=== PATIENT | male | born 1990 | race Caucasian/White ===

== ENCOUNTER 2018-12-17 11:36 | Emergency (ER) | payer MEDICAID ==
[~2018-12-17] VITALS: Ht 180.3 cm; Wt 88.6 kg
[2018-12-17 11:36] VITALS: BP 150/67
[~2018-12-17 11:36] MED LIST: HYDR-4383 PO
[2018-12-17] MEDS ORDERED: CEPH250T PO (12:25)
[2018-12-17] MEDS ORDERED: TETanus/Pertussis (Acell)/Diphther VAC/PF (Tdap-Adult) 0.5ml syringe IM ONE (12:25)
[2018-12-17] MEDS ORDERED: SULF1TAB49 PO (12:25)
== END 2018-12-17 12:52 | disposition home or self-care (01) ==
LOC: ER 11:36
DX: S60.459A Superficial foreign body of unspecified finger, initial encounter (principal); L08.9 Local infection of the skin and subcutaneous tissue, unspecified; Z79.899 Other long term (current) drug therapy; W45.8XXA Other foreign body or object entering through skin, initial encounter; Y93.89 Activity, other specified; Y92.89 Other specified places as the place of occurrence of the external cause; Y99.8 Other external cause status
CPT/HCPCS: 90471; 99284

== ENCOUNTER 2023-09-05 10:55 | Emergency (ER) | payer MEDICAID ==
[~2023-09-05] VITALS: Ht 180.3 cm; Wt 100.0 kg
[2023-09-05 10:57] VITALS: TEMP 98
[2023-09-05] MEDS: LIDOcaine 1% 30ml preserv. free vial SQ STA (13:02)
[2023-09-05] MEDS ORDERED: diph,pertuss (acell), tet (DTaP-PEDs)/PF (PEDIATRIC) 0.5ml syringe IMVAC ONE (13:35)
[2023-09-05] MEDS: TETanus/Pertussis (Acell)/Diphther VAC/PF (Tdap-Adult) 0.5ml syringe IMVAC ONE (14:23)
[2023-09-05 14:51] VITALS: BP 120/88; PULSE 76; RESP 16; O2SAT 97
== END 2023-09-05 14:55 | disposition home or self-care (01) ==
LOC: ER 10:55
DX: S81.812A Laceration without foreign body, left lower leg, initial encounter (principal); Z79.899 Other long term (current) drug therapy; X58.XXXA Exposure to other specified factors, initial encounter; Y93.89 Activity, other specified; Y92.89 Other specified places as the place of occurrence of the external cause; Y99.8 Other external cause status
CPT/HCPCS: 12001; 73564; 90471; 90715; 99283; J7030; A6446; A6449